=== PATIENT | female | born 1975 | race Two or more races ===

== ENCOUNTER 2018-04-27 08:47 | Emergency (ER) | payer MEDICAID ==
[~2018-04-27] VITALS: Ht 165.1 cm; Wt 80.0 kg
[2018-04-27] MEDS ORDERED: HYDR12.529 PO (08:57)
[2018-04-27] MEDS ORDERED: AMLO2.5T45 PO (08:57)
[2018-04-27] MEDS ORDERED: ONDANSETRON 4MG ODT PO ONE (09:30)
[2018-04-27] MEDS ORDERED: HYDROCODONE/ACETAMINOPHEN 5/325MG TABLET PO ONE (09:30)
[2018-04-27] MEDS ORDERED: MORPHINE SULFATE 4 MG/ML CPJ (NOT FOR IM USE) IV STA (11:05)
[2018-04-27] MEDS ORDERED: SODIUM CHLORIDE 0.9% 1,000 ML IV ONE (11:05)
[2018-04-27] MEDS ORDERED: ONDANSETRON HCL 4MG/2ML INJ IV STA (11:05)
[2018-04-27] MEDS ORDERED: ASPIRIN 81MG TABLET PO ONE (11:15)
[2018-04-27] MEDS ORDERED: NITROGLYCERIN OINT 1GM/INCH UDPKT TD ONE (11:15)
[2018-04-27 11:24] LABS: HEMATOCRIT. 38.2 % (36.0-48.0); HEMOGLOBIN. 12.7 g/dL (12.0-16.0); LYMPHOCYTES % 16.8 % (20.0-50.0); MEAN CORPUSCULAR HEMOGLOBIN 25.6 pg (28.0-32.0); MEAN CORPUSCULAR VOLUME 77.2 fL (81.0-99.0); MEAN PLATELET VOLUME 8.2 fl (7.4-10.4); MONOCYTES % 3.5 % (2.0-8.0); NEUTROPHILS % 77.7 % (40.0-76.0); PLATELET 250 x1000/uL (130-400); RED BLOOD CELL COUNT 4.95 mill/uL (4.2-5.4); RED CELL DISTRIBUTION WIDTH 15.2 % (11.6-14.6)
[2018-04-27 11:28] LABS: CHLORIDE 103 mEq/L (98-107)
[2018-04-27 11:31] LABS: PARTIAL THROMBOPLASTIN TIME 27.5 sec (23.4-31.0)
[2018-04-27 13:54] VITALS: BP 174/90
== END 2018-04-27 14:05 | disposition short-term general hospital (02) ==
LOC: ER 08:47 → CANBEDREQ 16:06
DX: R07.89 Other chest pain (principal); R51 Headache; I16.0 Hypertensive urgency; I10 Essential (primary) hypertension; V49.49XA Driver injured in collision with other motor vehicles in traffic accident, initial encounter; Y93.89 Activity, other specified; Y92.89 Other specified places as the place of occurrence of the external cause; Y99.8 Other external cause status
CPT/HCPCS: 36415; 70450; 71045; 73030; 73080; 80053; 81025; 83880; 84484; 85025; 85610; 85730; 93005; 96374; 96375; 99285; J2270; J2405; J7030; Q0162